=== PATIENT | female | born 1985 | race Caucasian/White ===

== ENCOUNTER → 2018-11-30 09:07 | Outpatient (CLI) | payer BC, SELFPAY ==
--- NOTE | 2018-11-30 09:14 | US_ITS ---
US abdomen History: Ordering Physician:Reyes Willis MD Patient Age: 33 years Comparison:3452 Findings: Pancreas:Unremarkable. No obvious mass or abnormal fluid collection. No ductal dilatation Liver:Fatty liver. No intrahepatic ductal dilatation or focal nodule demonstrated Right Kidney:Unremarkable. Normal size and echogenicity. No hydronephrosis Gallbladder:Gallstones are present. No gallbladder wall thickening, pericholecystic fluid, or biliary dilatation. Common bile duct is normal at 3 mm. Impression: Cholelithiasis
== END ==
PROVIDERS: PCP Family Medicine; Referring Provider Family Medicine; Visit Provider Family Medicine
DX: R10.11 Right upper quadrant pain (principal)
CPT/HCPCS: 76705

== ENCOUNTER 2020-09-16 16:03 | Emergency (ER) | payer BC, SELFPAY ==
[2020-09-16 16:35] VITALS: BP 143/83; PULSE 87; RESP 18; TEMP 37.1; O2SAT 99; BMI 30.2
[2020-09-16 16:49] LABS: Apearance,Urine Clear (Clear); Bilirubin,Urine Negative (Negative); Blood, Urine 2+ (Negative); Color,Urine Yellow (Yellow); Glucose,Urine (UA) Negative (Negative); Ketones,Urine TRACE (Negative); Protein,Urine 1+ (Negative); Urobilinogen,Urine 0.2 EU/dl (0.2)
[2020-09-16 16:50] LABS: UTC Leukocyte Esterase,Urine Negative (Negative); UTC Nitrate,Urine Negative (Negative)
--- NOTE | 2020-09-16 16:54 | HMH.EDUTC ---
[facility] [place] Impression: Urinary problem Disposition: Home, Self-Care Condition on Discharge: Good Instructions: DI for Flank Pain Additional Instructions: Make sure to follow up immediately if no improvement or any worsening of symptoms Return if needed Straight to ER if any worsening of Flank pain or any worsening of symptoms Follow up with Family Doctor tomorrow as advised Referrals: Magdaleno Hensley PA [Primary Care Provider] - As needed Forms: Work/School Release Time of Disposition: 17:19 Medical Decision Making - Marcos Inquiry Pt receiving controlled substance: No Marcos was queried for this patient: No Vital Signs: 09/16/20 16:35 09/16/20 17:22 Temperature 98.7 F 98.7 F Temperature Source Oral Pulse Rate 87 Pulse Rate [Right Brachial] 87 Respiratory Rate 18 18 Blood Pressure 143/83 H Blood Pressure [Right Arm] 143/83 H Blood Pressure Mean [Right Arm] 103 Blood Pressure Source [Right Arm] Automatic Cuff Blood Pressure Position [Right Arm] Sitting 02 Sat by Pulse Oximetry 99 Oxygen Delivery Method Room Air - Lab Data Lab results reviewed: Yes: I reviewed the patient's lab results. Lab Results 09/16/20 16:24: Urine Color Yellow, Urine Appearance Clear, Urine pH 6.0, Ur Specific Orla 1.030, Urine Protein 1+, Urine Glucose (UA) Negative, Urine Ketones Trace, Urine Blood 2+, Urine Nitrate Negative, Urine Bilirubin Negative, Urine Urobilinogen 0.2, Ur Leukocyte Esterase Negative 09/16/20 17:11: Tst Clinic Negative Medical Decision Narrative: Patient complaining of flank pain and frequent urination on and off for 1 week Denies fever, chills or body aches patient UA observed and blood noted denies menses at this time Discussed with patient and she denies history of Kidney stones, recommended transfer to the ED for further work up and evaluation Patient declined states that she would follow up with her family doctor if no improvement or immediately if any worsening [facility] [place] - General Stated complaint: poss UTI Time Seen by Provider: 09/16/20 16:55 Mode of Arrival: Ambulatory Source of Information: Patient Limitations: No Limitations Description of Symptoms (Recalled from Triage Doc. by RN): PATIENT C/O LEFT FLANK PAIN AND FREQUENT URINATION X 1 WEEK HEENT Symptoms (Recalled from RN notes): No Resp Symptoms (Recalled from RN notes): No Skin Symptoms (Recalled from RN notes): No MS Symptoms (Recalled from RN notes): No Functional Status (Recalled from RN notes): WNL - History of Present Illness Provider Complaint: Patient states that she thinks she may have a UTI States that she has been having pain on and off for about a week in her flank area and having frequent urination on and off States that she has not had any fever or anything but wanted to get checked for UTI - Related Data Allergies Allergy/AdvReac Type Severity Reaction Status Date / Time acetaminophen Allergy Verified 09/16/20 16:52 [From Excedrin Extra Strength] aspirin Allergy Verified 09/16/20 16:52 [From Excedrin Extra Strength] caffeine Allergy Verified 09/16/20 16:52 [From Excedrin Extra Strength] guaifenesin [From Robitussin] Allergy Verified 09/16/20 16:52 - Worker's Comp Is this a Worker's Comp case?: No [facility] History - Hepatitis A Screen Drug use history?: No High risk sexual behaviors?: No History of sexually transmitted infection?: No Currently employed?: No Childcare worker?: No Do you have indoor plumbing?: Yes Do you have electricity?: Yes Attestation statement:: This patient has been screened for Hepatitis A risk factors. I have reviewed the patient's past medical history: Yes Laterality Cases: Bilateral: Tonsillectomy - Social History Alcohol Intake: never Occupational Status: other ROS Obtained: Yes All systems reviewed & no additional complaints, Yes Systems reviewed as appropriate & no additional complaints -
[2020-09-16 17:11] LABS: UTC Pregnancy Test, Urine Negative (Negative)
[2020-09-16 17:22] VITALS: BP 143/83; PULSE 87; RESP 18; TEMP 37.1; O2SAT 99
== END 2020-09-16 17:24 | disposition home or self-care (01) ==
PROVIDERS: Emergency Provider Nurse Practitioner; PCP Physician Assistant
DX: R39.89 Other symptoms and signs involving the genitourinary system (principal)
CPT/HCPCS: 81003; 81025; 99202; G0463